=== PATIENT | male | born 1980 | race African-American/Black ===

== ENCOUNTER 2019-09-11 20:31 | Emergency (ER) | payer MEDICAID ==
[~2019-09-11] VITALS: Ht 175.3 cm; Wt 65.8 kg
[2019-09-11 20:34] VITALS: BP 139/90
--- NOTE | 2019-09-11 20:40 | NUR ---
PT TRANSFERED HIMSELF FROM [facility] TO BED BY ROLLING OVER.
[2019-09-11] MEDS ORDERED: ONDANSETRON 4 MG/2 ML VIAL IVP ONE (20:55)
[2019-09-11] MEDS ORDERED: NACL 0.9% 1,000 ML IV ONE (20:55)
[2019-09-11] MEDS ORDERED: HALOPERIDOL IM 5 MG/ML VIAL IM ONE (20:55)
--- NOTE | 2019-09-11 21:05 | NUR ---
39 YO M PAULINE FROM STREET. 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 ARRIVES WRITHING, GRIMACING ON GURNEY. C/O 08/27 ABD PAIN WITH N/V. PT STATES HE LAST SMOKED [place] THIS AM. WAS SEEN AT [facility] TODAY FOR SAME S/SX. WAS SENT HOME WITH RX FOR ZOFRAN AND PEPCID; HAS NOT FILLED RX. PMH-- PSYCH ISSUES RX-- TIARRA MUNOZ (NON COMPLIANT)
[2019-09-11 21:39] LABS: BASOPHILS % (AUTO) 0.5 % (0.0-2.0); EOSINOPHILS # (AUTO) 0.1 K/uL (0-0.4); EOSINOPHILS % (AUTO) 0.6 % (0.0-4.0); HEMATOCRIT 40.9 % (36-52); HEMOGLOBIN 13.5 g/dL (12.0-18.0); LYMPHOCYTES # (AUTO) 1.2 K/uL (2.0-11.5); LYMPHOCYTES % (AUTO) 13.2 % (20.5-51.1); MEAN CORPUSCULAR HEMOGLOBIN 29 pg (27-31); MEAN CORPUSCULAR HGB CONC 33 g/dL (33-37); MEAN CORPUSCULAR VOLUME 88.4 fL (80-94); MONOCYTES # (AUTO) 0.7 K/uL (0.8-1.0); MONOCYTES % (AUTO) 7.6 % (1.7-9.3); NEUTROPHILS # (AUTO) 7.3 K/uL (1.8-7.7); NEUTROPHILS % (AUTO) 78.1 % (42.2-75.2); PLATELET COUNT (AUTO) 227 K/uL (140-450); RED BLOOD CELL COUNT(AUTO) 4.63 MIL/uL (4.20-6.10); RED CELL DISTRIBUTION WIDTH 15.8 % (11.6-13.7); WHITE BLOOD COUNT (AUTO) 9.3 K/uL (4.8-10.8)
[2019-09-11 21:50] LABS: ANION GAP 12.7 (8-16); CHLORIDE 107 mmol/L (98-107); CREATININE 0.8 mg/dL (0.7-1.3); GFR ARICAN-AMERICAN 138 mL/min (>90); GLUCOSE 137 mg/dL (74-106); POTASSIUM 3.7 mmol/L (3.5-5.1); SODIUM SERUM 142 mmol/L (136-145); UREA NITROGEN, BLOOD 7 mg/dL (7-18)
[2019-09-11 21:57] LABS: ACETAMINOPHEN < 0.5 ug/ml (10-30); ALBUMIN 3.7 g/dL (3.4-5.0); ASPARTATE AMINOTRANSFERASE 26 U/L (15-37); LIPASE 157 U/L (73-393); SALICYLATE < 2.8 mg/dL (2.8-20.0); TOTAL BILIRUBIN 0.9 mg/dL (0.0-1.0)
[2019-09-12 00:59] LABS: BARBITURATE, URINE NEG. ng/ml (NEG <=200); BENZODIAZEPINE, URINE NEG. ng/mL (NEG <=200); CANNABINOID, URINE POS. ng/mL (NEG <=50); COCAINE, URINE NEG. ng/mL (NEG <=300); OPIATE, URINE NEG. ng/mL (NEG <=2000); PHENCYCLIDINE SCREEN,URINE NEG. ng/mL (NEG <=25)
--- NOTE | 2019-09-12 01:35 | NUR ---
RECEIVED REPORT FROM AIDA BRITO. TRANSFER OF CARE AT THIS TIME.
--- NOTE | 2019-09-12 01:36 | NUR ---
PT SLEEPING DEEPLY IN BED WITH VSS. AROUSABLE TO SHAKING.
--- NOTE | 2019-09-12 03:28 | NUR ---
PT SLEEPING DEEPLY WITH VSS. AROUSABLE TO SHAKING/PAINFUL STIMULI. DENIES ELIMINATION NEEDS AT THIS TIME.
--- NOTE | 2019-09-12 05:20 | NUR ---
PT SITTING UP IN BED WITH EYES CLOSED. PT STATES HE FEELS OK. VSS.
--- NOTE | 2019-09-12 05:50 | NUR ---
AROUSED PT AWAKE WITH SHAKING. PT STATES "I NEED TO GO TO THE BATHROOM" IN CLEAR SPEECH. PT SITS UP ON SIDE OF BED. PT ROAD TESTED; AMBULATES TO WITH STEADY GAIT.
--- NOTE | 2019-09-12 05:55 | NUR ---
PT RETURNS TO BED WITH STEADY GAIT. PT GETS BACK INTO BED AND STARTS TO FALL BACK ASLEEP. EXPLAINED TO PT HE HAS BEEN MEDICALLY DISCHARGED BY . PT REFUSING TO RESPOND. ATTEMPTED TO SIT PT UP IN BED AND ENCOURAGED TO GET DRESSED. PT REFUSING TO MOVE. SECURITY CALLED TO BED FOR ASSISTANCE. Addendum: 09/12/19 at 0630 by [facility] PT STATES "DON'T FUCKING TOUCH ME".
[2019-09-12 06:18] VITALS: BP 132/84
--- NOTE | 2019-09-12 06:18 | NUR ---
PT REFUSED TO SIGN DISCHARGE PAPERWORK. PT RECEIVED RX FOR ZOFRAN. AMBULATES WITH STEADY GAIT ACCOMPANIED BY [facility]EW[facility]. PT DISCHARGED WITH VSS. AFTERCARE INSTRUCTIONS PROVIDED AND EXPLAINED. ID BAND REMOVED. PT AMBULATES TO [facility]. WILL PROVIDE WITH BUS PASS FOR TRANSPORTATION. Addendum: 09/12/19 at 0707 by [facility] PT REFUSED TO SIGN HOMELESS PACKET.
== END 2019-09-12 06:18 | disposition home or self-care (01) ==
LOC: MED 20:31
DX: F19.10 Other psychoactive substance abuse, uncomplicated (principal); R11.12 Projectile vomiting
CPT/HCPCS: 36415; 74176; 80053; 80305; 83690; 85025; 93005; 96361; 96372; 96374; 99284; G0480; G0482; J1630; J2405; J7030